=== PATIENT | male | born 1940 | race Caucasian/White ===

== ENCOUNTER 2018-04-02 11:33 | Inpatient (IN) | payer MEDICARE, BC ==
[~2018-04-02] VITALS: Ht 175.3 cm; Wt 58.3 kg
[2018-04-02] MEDS ORDERED: KEPPSOL PO (11:38)
[2018-04-02] MEDS ORDERED: SODIUM CHLORIDE 0.9% 500 ML IV ONE (12:25)
[2018-04-02] MEDS ORDERED: LEVETIRACETAM 1000MG/100ML 100 ML IV ONE (12:30)
[2018-04-02 13:15] LABS: BASOPHILS % 0.4 % (0.0-2.0); EOSINOPHILS % 0.7 % (0.0-5.0); HEMATOCRIT. 33.8 % (42.0-52.0); HEMOGLOBIN. 11.3 g/dL (14.0-18.0); LYMPHOCYTES % 27.7 % (20.0-50.0); MEAN CORPUSCULAR HEMOGLOBIN 31.2 pg (28.0-32.0); MEAN CORPUSCULAR VOLUME 93.2 fL (80.0-94.0); MEAN PLATELET VOLUME 5.8 fl (7.4-10.4); MONOCYTES % 8.6 % (2.0-8.0); NEUTROPHILS % 62.6 % (40.0-76.0); PLATELET 317 x1000/uL (130-400); RED BLOOD CELL COUNT 3.63 mill/uL (4.7-6.1); RED CELL DISTRIBUTION WIDTH 14.4 % (11.6-14.6)
[2018-04-02 13:22] LABS: INR 1.1; PROTHROMBIN TIME 10.7 sec (9.1-11.1)
[2018-04-02 13:26] LABS: CHLORIDE 112 mEq/L (98-107)
[2018-04-02 13:28] LABS: AMMONIA 10 uMol/L (<32)
[2018-04-02 13:32] LABS: CREATINE KINASE 25 IU/L (39-308)
[2018-04-02 13:38] LABS: CREATINE KINASE MB FRACTION < 1.0 ng/mL (0.5-3.6)
[2018-04-02] MEDS ORDERED: LORAZEPAM 2MG/ML CPJ IV ONE (14:15)
[2018-04-02 21:43] LABS: CLARITY URINE CLEAR (CLEAR); COLOR URINE YELLOW (YELLOW); KETONES URINE TRACE (NEGATIVE); LEUKOCYTE ESTERASE URINE NEGATIVE (NEGATIVE); NITRITE URINE NEGATIVE (NEGATIVE); OCCULT BLOOD URINE 2+ (NEGATIVE); PROTEIN URINE NEGATIVE (NEGATIVE); SPECIFIC GRAVITY URINE 1.026 (1.005-1.030); UROBILINOGEN URINE 0.2 E.U./dL (0.2-1.0)
[2018-04-02] MEDS ORDERED: ATOR40TA70 PO (22:58)
[2018-04-02] MEDS ORDERED: RISP05 MT (22:58)
[2018-04-02] MEDS ORDERED: MEMA10TA2 PO (22:58)
[2018-04-02] MEDS ORDERED: DONE10TA43 PO (22:58)
[2018-04-02 23:01] VITALS: BP 184/79
[2018-04-02] MEDS: CLONIDINE 0.1MG TABLET PO PRN (23:28)
[2018-04-03] VITALS (9 sets, daily range): BP systolic 134–170; BP diastolic 60–99
[2018-04-03] MEDS: CLONIDINE 0.1MG TABLET PO PRN ×2 (05:06→12:25)
[2018-04-03 07:18] LABS: BASOPHILS % 0.5 % (0.0-2.0); HEMATOCRIT. 31.2 % (42.0-52.0); HEMOGLOBIN. 10.9 g/dL (14.0-18.0); LYMPHOCYTES % 21.5 % (20.0-50.0); MEAN CORPUSCULAR HEMOGLOBIN 32.1 pg (28.0-32.0); MEAN PLATELET VOLUME 6.2 fl (7.4-10.4); MONOCYTES % 8.1 % (2.0-8.0); NEUTROPHILS % 68.9 % (40.0-76.0); PLATELET 304 x1000/uL (130-400); RED BLOOD CELL COUNT 3.39 mill/uL (4.7-6.1)
[2018-04-03] MEDS: AMLODIPINE 10MG TABLET PO SCH (08:33)
[2018-04-03] MEDS ORDERED: MEMANTINE HCL 10MG TABLET PO SCH (09:00)
[2018-04-03] MEDS ORDERED: DONEPEZIL HCL 10MG TABLET PO SCH (09:00)
[2018-04-03] MEDS: ATORVASTATIN CALCIUM 40MG TABLET PO SCH (09:52)
[2018-04-03] MEDS: RISPERIDONE 0.5MG TABLET PO SCH ×3 (09:52→16:54)
[2018-04-03] MEDS: LEVETIRACETAM 500MG/5ML CUP PO SCH ×2 (09:52→16:54)
[2018-04-03] MEDS: ZONISAMIDE 100MG CAPSULE PO SCH (09:56)
[2018-04-03 11:24] LABS: CHLORIDE 111 mEq/L (98-107)
[2018-04-03] MEDS ORDERED: HYDRALAZINE 20MG/ML VIAL IV PRN (13:15)
[2018-04-03] MEDS ORDERED: HYDRALAZINE HCL 25MG TABLET PO SCH (14:00)
[2018-04-03] MEDS: LORAZEPAM 2MG/ML CPJ IV PRN (16:53)
[2018-04-03 19:31] LABS: TOTAL IRON BINDING CAPACITY 149 ug/dL (250-450)
[2018-04-03] MEDS: HYDRALAZINE HCL 25MG TABLET PO SCH (21:08)
[2018-04-04] VITALS: BP 111/63
[2018-04-04 04:00] VITALS: BP 109/52
[2018-04-04] MEDS: HYDRALAZINE HCL 25MG TABLET PO SCH ×3 (05:21→21:19)
[2018-04-04 07:46] LABS: HEMATOCRIT 33.7 % (42.0-52.0); HEMOGLOBIN 11.5 g/dL (14.0-18.0); MEAN CORPUSCULAR HEMOGLOBIN 31.2 pg (28.0-32.0); MEAN CORPUSCULAR VOLUME 91.6 fL (80.0-94.0); PLATELET 338 x1000/uL (130-400); RED BLOOD CELL COUNT 3.68 mill/uL (4.7-6.1); RED CELL DISTRIBUTION WIDTH 14.1 % (11.6-14.6)
[2018-04-04 08:00] VITALS: BP 148/72
[2018-04-04 08:05] LABS: *AMPHETAMINES SCREEN URINE NEGATIVE (NEGATIVE); *BARBITURATES SCREEN URINE NEGATIVE (NEGATIVE); *BENZODIAZEPINES SCREEN URINE NEGATIVE (NEGATIVE); *COCAINE SCREEN URINE NEGATIVE (NEGATIVE); CANNABINOID URINE SCREEN NEGATIVE (NEGATIVE); METHADONE URINE SCREEN NEGATIVE (NEGATIVE); OPIATES URINE SCREEN NEGATIVE (NEGATIVE); PHENCYCLIDINE URINE SCREEN NEGATIVE (NEGATIVE)
[2018-04-04 08:11] LABS: CHLORIDE 109 mEq/L (98-107)
[2018-04-04] MEDS: ZONISAMIDE 100MG CAPSULE PO SCH (09:01)
[2018-04-04] MEDS: RISPERIDONE 0.5MG TABLET PO SCH ×3 (09:01→18:07)
[2018-04-04] MEDS: LEVETIRACETAM 500MG/5ML CUP PO SCH ×2 (09:01→18:07)
[2018-04-04] MEDS: ATORVASTATIN CALCIUM 40MG TABLET PO SCH (09:02)
[2018-04-04] MEDS: AMLODIPINE 10MG TABLET PO SCH (09:02)
[2018-04-04 12:00] VITALS: BP 142/70
[2018-04-04 16:00] VITALS: BP 142/70
[2018-04-04] MEDS ORDERED: LORAZEPAM 2MG/ML CPJ IM NR (16:15)
[2018-04-04 20:00] VITALS: BP 131/71
[2018-04-04] MEDS: ENOXAPARIN 60MG/0.6ML SYR SUBCUT SCH (21:19)
[2018-04-05] VITALS (7 sets, daily range): BP systolic 115–131; BP diastolic 48–78
[2018-04-05] MEDS: LORAZEPAM 2MG/ML CPJ IV PRN (03:16)
[2018-04-05] MEDS: HYDRALAZINE HCL 25MG TABLET PO SCH ×2 (05:31→13:48)
[2018-04-05] MEDS: LEVETIRACETAM 500MG/5ML CUP PO SCH ×2 (09:17→18:35)
[2018-04-05] MEDS: ZONISAMIDE 100MG CAPSULE PO SCH (09:18)
[2018-04-05] MEDS: ATORVASTATIN CALCIUM 40MG TABLET PO SCH (09:18)
[2018-04-05] MEDS: AMLODIPINE 10MG TABLET PO SCH (09:18)
[2018-04-05] MEDS: RISPERIDONE 0.5MG TABLET PO SCH ×3 (09:18→18:35)
[2018-04-05] MEDS: ENOXAPARIN 60MG/0.6ML SYR SUBCUT SCH ×2 (09:19→21:56)
== END 2018-04-05 22:30 | disposition home health service (06) | DRG 100 ==
LOC: ER 13:18 → 8WST 13:39 → EDBEDREQTM 13:43 → EDBEDREQ 13:43 → ENRESERV 20:39
PROVIDERS: ADMIT Internal Medicine; ATTEND Internal Medicine
PROC: 4A00X4Z Measurement of Central Nervous Electrical Activity, External Approach (ICD-10-PCS; principal; 2018-04-03)
DX: G40.409 Other generalized epilepsy and epileptic syndromes, not intractable, without status epilepticus (principal); G92 Toxic encephalopathy; E87.0 Hyperosmolality and hypernatremia; E44.0 Moderate protein-calorie malnutrition; Z68.1 Body mass index [BMI] 19.9 or less, adult; R64 Cachexia; F02.80 Dementia in other diseases classified elsewhere, unspecified severity, without behavioral disturbance, psychotic disturbance, mood disturbance, and anxiety; E87.8 Other disorders of electrolyte and fluid balance, not elsewhere classified; E78.00 Pure hypercholesterolemia, unspecified; I45.4 Nonspecific intraventricular block; L89.150 Pressure ulcer of sacral region, unstageable; D64.9 Anemia, unspecified; E86.9 Volume depletion, unspecified; G30.9 Alzheimer's disease, unspecified; I10 Essential (primary) hypertension; I49.3 Ventricular premature depolarization; Z86.73 Personal history of transient ischemic attack (TIA), and cerebral infarction without residual deficits; Z79.899 Other long term (current) drug therapy
CPT/HCPCS: 36415; 51702; 70551; 71045; 80048; 80305; 82140; 82542; 82550; 82553; 82728; 83540; 83550; 83735; 83880; 84443; 84484; 85027; 93005; 93306; 93970; 96374; 99285; C1893; J1650; J1953; J2060; J7030; J7040

== ENCOUNTER 2018-07-28 06:15 | Inpatient (IN) | payer MEDICARE, BC ==
[~2018-07-28] VITALS: Ht 180.3 cm; Wt 62.6 kg
[~2018-07-28 06:15] MED LIST: ATOR40TA70 PO; DONE10TA43 PO; KEPPSOL PO; MEMA10TA2 PO; RISP05 MT
[2018-07-28] MEDS ORDERED: SODIUM CHLORIDE 0.9% 1,000 ML IV ONE (06:23)
[2018-07-28] MEDS ORDERED: DEXTROSE 50% WATER 50ML SYRINGE IV ONE ×2 (06:29→16:00)
[2018-07-28] MEDS ORDERED: FENTANYL CITRATE/PF 50MCG/ML 2ML VIAL IV ONE ×3 (07:15→12:00)
[2018-07-28] MEDS ORDERED: LORAZEPAM 2MG/ML CPJ IV PRN (14:45)
[2018-07-28] MEDS ORDERED: MORPHINE SULFATE 250 MG in DEXT 5% WATER 240 ML IV PRN ×2 (14:45→16:30)
[2018-07-28 20:00] VITALS: BP_SYST 104; BP_DIAS 54; BP_DIAS 74
[2018-07-29] VITALS: BP 84/41
[2018-07-29 04:00] VITALS: BP 99/55
[2018-07-29 08:00] VITALS: BP 164/101
== END 2018-07-29 12:00 | disposition expired | DRG 871 ==
LOC: ER 06:15 → EDBEDREQTM 07:30 → EDBEDREQSVC 07:30 → EDBEDREQ 07:30 → 6EST 08:36 → EDBEDREQ 08:44 → EDBEDREQTM 08:44 → ENRESERV 15:29
PROVIDERS: ADMIT Family Medicine; ATTEND Family Medicine
DX: A41.9 Sepsis, unspecified organism (principal); E43 Unspecified severe protein-calorie malnutrition; J96.00 Acute respiratory failure, unspecified whether with hypoxia or hypercapnia; J69.0 Pneumonitis due to inhalation of food and vomit; R64 Cachexia; Z68.1 Body mass index [BMI] 19.9 or less, adult; F03.90 Unspecified dementia, unspecified severity, without behavioral disturbance, psychotic disturbance, mood disturbance, and anxiety; Z66 Do not resuscitate; I10 Essential (primary) hypertension; G40.909 Epilepsy, unspecified, not intractable, without status epilepticus; E86.0 Dehydration; E16.2 Hypoglycemia, unspecified; R73.9 Hyperglycemia, unspecified; Z51.5 Encounter for palliative care; D64.9 Anemia, unspecified; R65.20 Severe sepsis without septic shock; Z87.01 Personal history of pneumonia (recurrent); Z86.73 Personal history of transient ischemic attack (TIA), and cerebral infarction without residual deficits; Z79.899 Other long term (current) drug therapy
CPT/HCPCS: 71045; 82962; 93005; 96361; 96374; 96375; 99285; J2274; J3010; J7030; J7060; A4315